=== PATIENT | female | born 1995 | race African-American/Black ===

== ENCOUNTER 2016-09-26 11:45 | Outpatient (CLI) | payer BC, MEDICAID ==
[2016-09-26 12:19] LABS: APPEARANCE,URINE SLIGHTLY-CLOUDY; BILIRUBIN,URINE NEGATIVE (NEGATIVE); GLUCOSE, URINE NEGATIVE (NEGATIVE); KETONES,URINE NEGATIVE (NEGATIVE); LEUKOCYTE ESTERASE,URINE TRACE (NEGATIVE); NITRITE,URINE NEGATIVE (NEGATIVE); PROTEIN,URINE NEGATIVE (NEGATIVE); URINE SPECIFIC GRAVITY 1.014; UROBILINOGEN,URINE NEGATIVE mg/dL (<2.0)
[2016-09-26 12:23] LABS: URINE BARBITURATES SCREEN NEGATIVE; URINE METHADONE SCREEN NEGATIVE; URINE OPIATES LOW NEGATIVE; URINE PHENCYCLIDINE SCREEN NEGATIVE
[2016-09-26] MEDS ORDERED: RINGERS SOLUTION,LACTATED 1,000 ML IV ONE (12:24)
[2016-09-26] MEDS ORDERED: RINGERS SOLUTION,LACTATED 1,000 ML IV PRN (12:24)
[2016-09-26] MEDS ORDERED: BETAMET ACET/BETAMET NA INJ 6 MG/1 ML ONE (12:39)
[2016-09-26 12:55] LABS: ABSOLUTE EOSINOPHILS # (AUTO) 0.1 10^3/uL (0.0-0.6); ABSOLUTE LYMPHOCYTES (AUTO) 1.3 10^3/uL (0.5-4.7); ABSOLUTE MONOCYTES (AUTO) 0.7 10^3/uL (0.1-1.4); ABSOLUTE NEUT (AUTO) 4.6 10^3/uL (1.7-8.2); BASOPHILS % (AUTO) 0.6 % (0-2); EOSINOPHILS % (AUTO) 1.1 % (0-6); HEMATOCRIT 36.6 % (36.0-47.0); HEMOGLOBIN 11.4 g/dL (12.0-15.5); HGB HCT DIFFERENCE -2.4; LYMPHOCYTES % (AUTO) 19.1 % (13-45); MEAN CORPUSCULAR HEMOGLOBIN 22.5 pg (27.0-33.4); MEAN CORPUSCULAR VOLUME 73 fl (80-97); MONOCYTES % (AUTO) 10.1 % (3-13); RED BLOOD COUNT 5.05 10^6/uL (3.72-5.28); RED CELL DISTRIBUTION WIDTH 16.5 % (11.5-14.0); SEGMENTED NEUTROPHILS % (AUTO) 69.1 % (42-78); WHITE BLOOD COUNT 6.6 10^3/uL (4.0-10.5)
[2016-09-26] MEDS ORDERED: BETAMET ACET/BETAMET NA INJ 6 MG/1 ML IM SCH (13:00)
[2016-09-26 13:26] LABS: AMNISURE (ROM) NEGATIVE (NEGATIVE)
[2016-09-26 14:54] LABS: CHLAM PCR NOT DETECTED (NOT DETECT)
[2016-09-26] MEDS ORDERED: CONTAINER EMPTY IV PRN (15:11)
[2016-09-26] MEDS ORDERED: [UNRECOGNIZED DRUG - OTHER] IV PRN (15:11)
[2016-09-26] MEDS ORDERED: METRONIDAZOLE IV PRN (15:11)
[2016-09-26] MEDS ORDERED: ONDANSETRON 4 MG TAB.RAPDIS ONE (16:01)
[2016-09-26] MEDS ORDERED: METRONIDAZOLE 500 MG/NS RTU 100 ML IV ONE ×2 (16:03→16:04)
[2016-09-26] MEDS ORDERED: METRONIDAZOLE 500 MG/NS RTU 100 ML IV PRN (16:11)
[2016-09-26] MEDS ORDERED: ONDANSETRON 4 MG TAB.RAPDIS PO ONE (16:30)
--- NOTE | 2016-09-26 17:06 | Non Stress Test Report ---
Non Stress Test Datetime Report Generated by CPN: 09/26/2016 17:05 DEMOGRAPHIC EGA NST: 32.6 INDICATION Indication for Study: labor MONITORING Monitor Explained: Monitor Explained; Test Explained; Patient Verbalized Understanding Time on Monitor: 09/26/2016 14:00 Time off Monitor: 09/26/2016 14:20 NST Duration: 20 NST INTERVENTIONS NST Interventions: None Physician Notified NST: A Emmel CNM BABY A: [id number] BABY A Movement : Present Contraction Frequency : irregular FHR Baseline : 135 Accelerations : 15X15 Decelerations : None Variability : Moderate 6-25bpm NST Review: Meets Criteria for Reactive NST NST Review and Verified By : Jenni Camp RNC NST Results: Reactive NST REPORT Report Trigger: Send Report
== END 2016-09-26 17:29 | disposition home or self-care (01) ==
LOC: LC 11:45
PROVIDERS: ATTEND Obstetrics & Gynecology
DX: O60.03 Preterm labor without delivery, third trimester (principal); Z3A.32 32 weeks gestation of pregnancy
CPT/HCPCS: 59025; 96372; 84112; 86900; 86901; 36415; 87210; 86850; 85025; 86592; 81001; 87081; 80307; 87491; 87591; S0119; J0702

== ENCOUNTER 2016-09-27 13:04 | Outpatient (CLI) | payer BC, MEDICAID ==
[2016-09-27] MEDS ORDERED: BETAMET ACET/BETAMET NA INJ 6 MG/1 ML ONE (13:16)
[2016-09-27] MEDS ORDERED: BETAMET ACET/BETAMET NA INJ 6 MG/1 ML IM ONE (14:30)
== END 2016-09-27 13:20 | disposition home or self-care (01) ==
LOC: LC 13:04
PROVIDERS: ATTEND Obstetrics & Gynecology
DX: O60.03 Preterm labor without delivery, third trimester (principal); Z3A.32 32 weeks gestation of pregnancy
CPT/HCPCS: 96372; J0702

== ENCOUNTER 2016-09-27 22:18 | Outpatient (CLI) | payer BC, MEDICAID ==
[2016-09-27 22:52] LABS: APPEARANCE,URINE CLEAR; BILIRUBIN,URINE NEGATIVE (NEGATIVE); GLUCOSE, URINE 50 mg/dL (NEGATIVE); KETONES,URINE NEGATIVE (NEGATIVE); LEUKOCYTE ESTERASE,URINE TRACE (NEGATIVE); NITRITE,URINE NEGATIVE (NEGATIVE); PROTEIN,URINE NEGATIVE (NEGATIVE); URINE SPECIFIC GRAVITY 1.002; UROBILINOGEN,URINE NEGATIVE mg/dL (<2.0)
[2016-09-27 23:06] LABS: URINE BARBITURATES SCREEN NEGATIVE; URINE METHADONE SCREEN NEGATIVE; URINE OPIATES LOW NEGATIVE; URINE PHENCYCLIDINE SCREEN NEGATIVE
--- NOTE | 2016-09-27 23:49 | Non Stress Test Report ---
Non Stress Test Datetime Report Generated by CPN: 09/27/2016 23:48 DEMOGRAPHIC Test Number: 3 EGA NST: 33.0 INDICATION Indication for Study: Decreased Movement; Ordered by Provider VITAL SIGNS Temperature - NST: 98.1 Pulse - NST: 76 RESP - NST: 14 NBPSYS NST: 108 NBPDIA NST: 69 URINE RESULTS Urine Protein, NST: Negative Urine Ketones - NST: Negative Urine Glucose - NST: Positive Urine Blood - NST: Negative MONITORING Monitor Explained: Monitor Explained; Test Explained; Patient Verbalized Understanding Time on Monitor: 09/27/2016 22:35 Time off Monitor: 09/27/2016 23:27 NST Duration: 52 NST INTERVENTIONS NST Interventions: PO Hydration Physician Notified NST: Dr. Mclain BABY A: [id number] BABY A Movement : Absent Contraction Frequency : x1 FHR Baseline : 130 Accelerations : 15X15 Decelerations : None Variability : Moderate 6-25bpm NST Review: Meets Criteria for Reactive NST NST Review and Verified By : K. Nolan, RN NST Results: Reactive NST REPORT Report Trigger: Send Report
== END 2016-09-27 23:43 | disposition home or self-care (01) ==
LOC: LC 22:18
PROVIDERS: ATTEND Obstetrics & Gynecology
DX: O36.8130 Decreased fetal movements, third trimester, not applicable or unspecified (principal); Z3A.33 33 weeks gestation of pregnancy
CPT/HCPCS: 59025; 96372; 81001; 80307; J0702

== ENCOUNTER 2016-11-18 03:02 | Inpatient (IN) | payer BC, MEDICAID ==
[2016-11-18 04:06] LABS: APPEARANCE,URINE SLIGHTLY-CLOUDY; BILIRUBIN,URINE NEGATIVE (NEGATIVE); GLUCOSE, URINE NEGATIVE (NEGATIVE); KETONES,URINE NEGATIVE (NEGATIVE); LEUKOCYTE ESTERASE,URINE TRACE (NEGATIVE); NITRITE,URINE NEGATIVE (NEGATIVE); PROTEIN,URINE 30 mg/dL (NEGATIVE); URINE SPECIFIC GRAVITY 1.011; UROBILINOGEN,URINE NEGATIVE mg/dL (<2.0)
[2016-11-18 04:20] LABS: URINE BARBITURATES SCREEN NEGATIVE; URINE METHADONE SCREEN NEGATIVE; URINE OPIATES LOW NEGATIVE; URINE PHENCYCLIDINE SCREEN NEGATIVE
[2016-11-18 04:36] LABS: ABSOLUTE BASOPHILS # (AUTO) 0.1 10^3/uL (0.0-0.2); ABSOLUTE EOSINOPHILS # (AUTO) 0.1 10^3/uL (0.0-0.6); ABSOLUTE LYMPHOCYTES (AUTO) 1.4 10^3/uL (0.5-4.7); ABSOLUTE MONOCYTES (AUTO) 0.5 10^3/uL (0.1-1.4); ABSOLUTE NEUT (AUTO) 3.9 10^3/uL (1.7-8.2); BASOPHILS % (AUTO) 0.9 % (0-2); EOSINOPHILS % (AUTO) 1.1 % (0-6); HEMATOCRIT 33.7 % (36.0-47.0); HEMOGLOBIN 10.9 g/dL (12.0-15.5); LYMPHOCYTES % (AUTO) 23.9 % (13-45); MEAN CORPUSCULAR HEMOGLOBIN 22.4 pg (27.0-33.4); MEAN CORPUSCULAR HGB CONC 32.4 g/dL (32.0-36.0); MEAN CORPUSCULAR VOLUME 69 fl (80-97); MONOCYTES % (AUTO) 7.7 % (3-13); RED BLOOD COUNT 4.87 10^6/uL (3.72-5.28); RED CELL DISTRIBUTION WIDTH 19.1 % (11.5-14.0); SEGMENTED NEUTROPHILS % (AUTO) 66.4 % (42-78); WHITE BLOOD COUNT 5.9 10^3/uL (4.0-10.5)
[2016-11-18 04:43] LABS: ALANINE AMINOTRANSFERASE 20 U/L (9-52); ALKALINE PHOSPHATASE 122 U/L (38-126); ANION GAP 10 (5-19); ASPARTATE AMINO TRANSFERASE 18 U/L (14-36); BILIRUBIN,DIRECT 0.3 mg/dL (0.0-0.4); BILIRUBIN,TOTAL 0.3 mg/dL (0.2-1.3); BLOOD UREA NITROGEN 7 mg/dL (7-20); CALCIUM 9.8 mg/dL (8.4-10.2); CARBON DIOXIDE 21 mmol/L (22-30); CHLORIDE 107 mmol/L (98-107); CREATININE RESULT 0.71 mg/dL (0.52-1.25); GLUCOSE 103 mg/dL (75-110); LDH 410 U/L (313-618); POTASSIUM 4.1 mmol/L (3.6-5.0); SODIUM 138.3 mmol/L (137-145); TOTAL PROTEIN 5.9 g/dL (6.3-8.2); URIC ACID 5.7 mg/dL (2.5-6.2)
[2016-11-18] MEDS ORDERED: RINGERS SOLUTION,LACTATED 1,000 ML IV PRN (06:25)
[2016-11-18] MEDS ORDERED: NALBUPHINE HCL INJ 10 MG/1 ML AMPULE INJ ONE ×2 (06:26→20:20)
[2016-11-18] MEDS ORDERED: PROMETHAZINE HCL INJ 25 MG/1 ML VIAL IV ONE (06:26)
[2016-11-18] MEDS ORDERED: MISOPROSTOL 0.2 MG TABLET ONE ×2 (09:29→19:39)
[2016-11-18] MEDS ORDERED: LIDOCAINE 1% INJ-PF (10 MG/ML) 30 ML SDV ONE (09:30)
[2016-11-18] MEDS ORDERED: OXYTOCIN/NORMAL SALINE 20 UNIT/1,000 ML RTUINJ ONE ×2 (09:30→21:12)
[2016-11-18] MEDS ORDERED: PROMETHAZINE HCL INJ 25 MG/1 ML VIAL ONE (10:53)
[2016-11-18] MEDS ORDERED: NALBUPHINE HCL INJ 10 MG/1 ML AMPULE ONE ×2 (10:53→20:25)
[2016-11-18] MEDS ORDERED: PROMETHAZINE HCL 25 MG TABLET PO PRN (15:37)
[2016-11-18] MEDS ORDERED: ZOLPIDEM TARTRATE 5 MG TABLET PO PRN (15:37)
[2016-11-18] MEDS ORDERED: DIPH/PERTUSS(ACELL)/TETANUS VAC/PF 0.5 ML SYR (>=10YO) IM PRN (15:37)
[2016-11-18] MEDS ORDERED: PROMETHAZINE HCL INJ 25 MG/1 ML VIAL IV PRN (15:37)
[2016-11-18] MEDS ORDERED: DIBUCAINE 1% OINTMENT 28 GM TP PRN (15:37)
[2016-11-18] MEDS ORDERED: PROMETHAZINE HCL 25 MG SUPP.RECT PR PRN (15:37)
[2016-11-18] MEDS ORDERED: MEASLES,MUMPS&RUBELLA VACC/PF 0.5 ML VIAL SUBCUT PRN (15:37)
[2016-11-18] MEDS ORDERED: GLYCERIN/WITCH HAZEL LEAF 1 EACH MED..PAD TP PRN (15:37)
[2016-11-18] MEDS ORDERED: PSEUDOEPHEDRINE HCL 30 MG TABLET PO PRN (15:37)
[2016-11-18] MEDS ORDERED: NA PHOS,M-B/NA PHOS,DI-BA (ADULT) 133 ML ENEMA PR PRN (15:37)
[2016-11-18] MEDS ORDERED: DIPHENHYDRAMINE HCL 25 MG CAPSULE PO PRN (15:37)
[2016-11-18] MEDS ORDERED: OXYTOCIN/NORMAL SALINE 20 UNIT/1,000 ML RTUINJ IV PRN ×2 (15:37→21:16)
[2016-11-18] MEDS ORDERED: MAGNESIUM HYDROXIDE SUSP 30 ML UDCUP PO PRN (15:37)
[2016-11-18] MEDS: IBUPROFEN 800 MG TABLET PO SCH (16:13)
[2016-11-18] MEDS ORDERED: IBUPROFEN 800 MG TABLET ONE (16:15)
--- NOTE | 2016-11-18 18:21 | Admission Physical ---
Datetime Report Generated by CPN: 11/18/2016 18:21 CURRENT ADMISSION Chief Complaint: Uterine Contractions Indication for Induction: Not Applicable Admit Plan: Admit to Unit; Initiate Labor Protocol ALLERGIES Medication Allergies: Yes Medication Allergies: oxycodone/GA (11/18/2016); acetaminophen/GA (11/18/2016) Medication Allergies: oxycodone/GA (09/27/2016); acetaminophen/GA (09/27/2016) Medication Allergies: oxycodone (09/26/2016); acetaminophen (09/26/2016) Medication Allergies: Percocet Latex: No Latex Allergies Food Allergies: N/A Environmental Allergies: N/A OBSTETRICAL HISTORY EDC: 11/15/2016 00:00 : 1 Para: 0 Term: 0 : 0 SAB: 0 IAB: 0 Ectopic: 0 Livin Cesareans: 0 VBACs: 0 Multiple Births: 0 Gestational Diabetes: No Rh Sensitization: No Incompetent Cervix: No ABHI: No Infertility: No ART Treatment: No Uterine Anomaly: No IUGR: No Hx Previous C/S: No Macrosomia: No Hx Loss/Stillborn: No PIH: No Hx : No Placenta Previa/Abruption: No Depression/PP Depression: No PTL/PROM: No Post Hemorrhage: No Current Procedures: Ultrasound Obstetrical History Comments: G1-current , shortened cervix at 32+6 weeks gestation SEE RECORDS Alcohol: No Marijuana : No Cocaine: No Other Illicit Drugs: No Cigarettes: Never Smoker. 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 Surgery: No Heart Disease: No Hosp/Surgery: No Autoimmune Disorder: No Anesthetic Complications: No Kidney Disease: No Abnormal Pap Smear: No Neuro/Epilepsy: No Psychiatric Disorders: No Other Medical Diseases: No Hepatitis/Liver Disease: No Significant Family History: No Varicosities/Phlebitis: No Trauma/Violence : No Thyroid Dysfunction: No INFECTIOUS HISTORY Gonorrhea: No Genital Herpes: No Chlamydia: No Tuberculosis: No Syphilis: No Hepatitis: No HIV/AIDS Exposure: No Rash or Viral Illness: No HPV: No PHYSICAL EXAM General: Normal HEENT: Normal Neurologic: Normal Thyroid: Deferred Heart: Normal Lungs: Normal Breast: Deferred Back: Normal Abdomen: Normal Genitourinary Exam: Normal Extremities: Normal DTRs: Normal Pelvic Type: Adequate Vital Signs: Reviewed; Within Normal Limits VAGINAL EXAM Dilatation: 5 Effacement: 80 Station: -1 MEMBRANES Membranes: Intact FETUS A EGA: 40.3 Monitoring: External US FHR- Baseline: 140 Variability: Moderate 6-25bpm Accelerations: 15X15 Decelerations: None FHR Category: Category I Presentation: Vertex PLANS FOR LABOR AND DELIVERY Labor and Delivery: None Pain Management: Medications Feeding Preference: Breast Benefit of Breast Feed Discussed: Yes Circumcision: N/A INFORMED CONSENT Signature: with User ID: [email or web address]
[2016-11-18] MEDS: FERROUS SULFATE 325 MG TABLET PO SCH (18:25)
[2016-11-18] MEDS: DOCUSATE SODIUM 100 MG CAPSULE PO SCH (18:25)
[2016-11-18] MEDS: BENZOCAINE/MENTHOL AEROSOL SPRAY 56 ML TOP PRN (18:26)
[2016-11-18] MEDS ORDERED: MISOPROSTOL 0.1 MG TABLET PR ONE (20:00)
[2016-11-18] MEDS ORDERED: CEFAZOLIN 2 GM/D5W RTU 2 GM/50 ML RTUPB IV PRN (20:39)
[2016-11-18] MEDS ORDERED: METHYLERGONOVINE MALEATE 0.2 MG TABLET PO SCH (20:45)
--- NOTE | 2016-11-18 20:53 | PDOC PROGRESS REPORT ---
Subjective Progress Note for:: 11/18/16 Subjective:: bleeding after delivery. Called by RN to eval Physical Exam - Physical Exam Vital Signs: Temp Pulse Resp BP Pulse Ox 98.5 F 113 H 20 120/75 100 11/18/16 19:40 11/18/16 19:50 11/18/16 19:40 11/18/16 19:50 11/18/16 19:40 Intake & Output 11/17/16 11/18/16 11/19/16 06:59 06:59 06:59 Weight 76.55 kg General appearance: PRESENT: no acute distress, well-developed, well-nourished Gentrourinary exam: PRESENT: other - Minimal blood on chux upon entry into room to eval. clot in lower uterine segment and cervix - removed with good response of uterine tone with fundal rub. Sanders to gravity placed. Neurological exam: PRESENT: alert, awake, oriented to person, oriented to place , oriented to time, oriented to situation, CN II-XII grossly intact. ABSENT: motor sensory deficit Result Laboratory Results: 11/18/16 04:15 11/18/16 04:15 11/18/16 11/18/16 11/18/16 03:11 04:15 04:15 WBC 5.9 RBC 4.87 Hgb 10.9 L Hct 33.7 L MCV 69 L MCH 22.4 L MCHC 32.4 RDW 19.1 H Plt Count 202 Seg Neutrophils % 66.4 Lymphocytes % 23.9 Monocytes % 7.7 Eosinophils % 1.1 Basophils % 0.9 Absolute Neutrophils 3.9 Absolute Lymphocytes 1.4 Absolute Monocytes 0.5 Absolute Eosinophils 0.1 Absolute Basophils 0.1 Sodium 138.3 Potassium 4.1 Chloride 107 Carbon Dioxide 21 L Anion Gap 10 BUN 7 Creatinine 0.71 Est GFR ( Amer) > 60 Est GFR (Non-Af Amer) > 60 Glucose 103 Uric Acid 5.7 Calcium 9.8 Total Bilirubin 0.3 AST 18 ALT 20 Alkaline Phosphatase 122 Total Protein 5.9 L Albumin 3.0 L Urine Color YELLOW Urine Appearance SLIGHTLY-CLOUDY Urine pH 6.0 Ur Specific [place] 1.011 Urine Protein 30 H Urine Glucose (UA) NEGATIVE Urine Ketones NEGATIVE Urine Blood NEGATIVE Urine Nitrite NEGATIVE Ur Leukocyte Esterase TRACE H Blood Type Antibody Screen 11/18/16 04:15 WBC RBC Hgb Hct MCV MCH MCHC RDW Plt Count Seg Neutrophils % Lymphocytes % Monocytes % Eosinophils % Basophils % Absolute Neutrophils Absolute Lymphocytes Absolute Monocytes Absolute Eosinophils Absolute Basophils Sodium Potassium Chloride Carbon Dioxide Anion Gap BUN Creatinine Est GFR ( Amer) Est GFR (Non-Af Amer) Glucose Uric Acid Calcium Total Bilirubin AST ALT Alkaline Phosphatase Total Protein Albumin Urine Color Urine Appearance Urine pH Ur Specific [place] Urine Protein Urine Glucose (UA) Urine Ketones Urine Blood Urine Nitrite Ur Leukocyte Esterase Blood Type O POSITIVE Antibody Screen NEGATIVE Assessment & Plan - Diagnosis (1) hemorrhage Qualifiers: hemorrhage type: unspecified Qualified Code(s): O72.1 - Other immediate hemorrhage Is this a current diagnosis for this admission?: Yes Plan: Delivered at approx 1500 this afternoon - uncomplicated with no epidural for analgesia. Bladder scan reported on 90ml of urine in bladder but pthaving low volume output with voids. No epidural therefore no ureinary catheter in place during labor. Mild pp hemorrhage. Poss 500ml of clot removed. Uterine tone o/w good. Pitocin ordered 20units in 1L. Cytotec 1000mcg given per rectum. BP wnl and will give 24 hour of methergine. Sanders to gravity placed with 125ml of immediate return of urine output. - Time Time Spent with patient: 15-24 minutes Medications reviewed and adjusted accordingly: Yes Anticipated discharge: Home Within: within 48 hours - Inpatient Certification Based on my medical assessment, after consideration of the patient's comorbidities, presenting symptoms, or acuity I expect that the services needed warrant INPATIENT care.: Yes I certify that my determination is in accordance with my understanding of Medicare's requirements for reasonable and necessary INPATIENT services [42 CFR 412.3e].: Yes Medical Necessity: Need Close Monitoring Due to Risk of Patient Decompensation, Need For IV Fluids, Need for Pain Control, Need for IV Antibiotics Post Hospital Care: D/C Heating Element Repairer Documentation - Plan Summary Plan Summary: IV abx, IVF, repeat CBC in am. VS stable. Methergine and pitocin ordered. Sanders to gravity placed.
[2016-11-18] MEDS ORDERED: METHYLERGONOVINE MALEATE 0.2 MG TABLET ONE (21:12)
[2016-11-18] MEDS: FAMOTIDINE 20 MG TABLET PO SCH (21:34)
[2016-11-18] MEDS ORDERED: ACETAMINOPHEN WITH CODEINE #3 TABLET ONE (22:57)
[2016-11-18] MEDS ORDERED: ACETAMINOPHEN WITH CODEINE #3 TABLET PO PRN (22:57)
[2016-11-19] MEDS ORDERED: LOPERAMIDE HCL 2 MG CAPSULE PO PRN (00:44)
[2016-11-19] MEDS ORDERED: LOPERAMIDE HCL 2 MG CAPSULE PO ONE (00:45)
[2016-11-19] MEDS ORDERED: CARBOPROST TROMETHAMINE INJ 250 MCG/1 ML AMPULE IM ONE (01:00)
[2016-11-19] MEDS: METHYLERGONOVINE MALEATE 0.2 MG TABLET PO SCH ×3 (02:47→15:05)
[2016-11-19] MEDS ORDERED: CARBOPROST TROMETHAMINE INJ 250 MCG/1 ML AMPULE ONE (03:42)
[2016-11-19] MEDS: IBUPROFEN 800 MG TABLET PO SCH ×3 (05:41→21:33)
[2016-11-19 07:23] LABS: HEMATOCRIT 24.1 % (36.0-47.0); HGB HCT DIFFERENCE -0.7; MEAN CORPUSCULAR HEMOGLOBIN 22.5 pg (27.0-33.4); MEAN CORPUSCULAR HGB CONC 32.4 g/dL (32.0-36.0); MEAN CORPUSCULAR VOLUME 69 fl (80-97); RED BLOOD COUNT 3.47 10^6/uL (3.72-5.28); RED CELL DISTRIBUTION WIDTH 19.4 % (11.5-14.0); WHITE BLOOD COUNT 7.2 10^3/uL (4.0-10.5)
[2016-11-19] MEDS: ACETAMINOPHEN WITH CODEINE #3 TABLET PO PRN ×2 (07:24→13:41)
[2016-11-19 07:42] LABS: HEMOGLOBIN 7.8 g/dL (12.0-15.5)
[2016-11-19] MEDS: PRENATAL VITAMIN W-O CA NO5/FE FUMARATE/FA CAPSULE PO SCH (09:03)
[2016-11-19] MEDS: DOCUSATE SODIUM 100 MG CAPSULE PO SCH ×2 (09:03→17:28)
[2016-11-19] MEDS: FERROUS SULFATE 325 MG TABLET PO SCH ×2 (09:04→17:28)
[2016-11-19] MEDS: FAMOTIDINE 20 MG TABLET PO SCH ×2 (09:04→21:32)
[2016-11-19] MEDS: SENNOSIDES/DOCUSATE 8.6-50 MG 1 EACH TABLET PO SCH (09:04)
--- NOTE | 2016-11-19 11:00 | PDOC PROGRESS REPORT ---
Subjective-OB Subjective: Post Delivery Day:1 21 year old G1 now P1 s/p ppd1. Denies any needs at this time, koehler just removed. Has not had a chance to ambulate after last night. Denies shortness of breath, dizziness or lightheadedness this am. No other concerns. Physical Exam (OB) Vital Signs: Temp Pulse Resp BP Pulse Ox 98.1 F 102 H 16 124/67 99 11/19/16 03:59 11/19/16 03:59 11/19/16 03:59 11/19/16 03:59 11/19/16 03:59 Intake & Output 11/18/16 11/19/16 11/20/16 06:59 06:59 06:59 Output Total 550 Balance -550 Weight 76.55 kg - General General Appearance: Appears well In distress: None - PIH/Pre-Eclampsia DTR's: 1 + Clonus: Negative Headache: Absent Epigastric Pain: No Visual Changes: No - Episiotomy/Laceration Site Condition: Well Approximated - Lochia Lochia Amount: Small 10-25 ml Lochia Color: Rubra/Red - Abdomen Description: Soft, Round Hernia Present: No Fundal Description: Firm, Midline Fundal Height: u/u - u/2 - Respiratory Respiratory Status: No respiratory distress - Extremities Upper extremity: Normal inspection Lower extremities: Normal inspection - Neurological Cognition: Normal Orientation: AAOx4 - Psychological Associated symptoms: Normal affect - bonding well with baby. Breast and bottle feeding, Normal mood Objective-Diagnostic Laboratory: 11/19/16 07:01 11/18/16 04:15 11/19/16 07:01 WBC 7.2 RBC 3.47 L Hgb 7.8 L D Hct 24.1 L MCV 69 L MCH 22.5 L MCHC 32.4 RDW 19.4 H Plt Count 179 Assessment and Plan(PN) - Assessment and Plan (1) Vaginal delivery Is this a current diagnosis for this admission?: Yes Plan: routine pp care (2) hemorrhage Qualifiers: hemorrhage type: unspecified Qualified Code(s): O72.1 - Other immediate hemorrhage Is this a current diagnosis for this admission?: Yes Plan: will continue methergine and evaluate for possible blood transfusion prn - Time Spent with Patient Time with patient: 15-25 minutes Medications reviewed and adjusted accordingly: Yes - Disposition Anticipated Discharge: Home Within: within 24 hours
[2016-11-19] MEDS: BENZOCAINE/MENTHOL AEROSOL SPRAY 56 ML TOP PRN (21:33)
[2016-11-20] MEDS: IBUPROFEN 800 MG TABLET PO SCH (06:21)
[2016-11-20] MEDS: FERROUS SULFATE 325 MG TABLET PO SCH (09:13)
[2016-11-20] MEDS: DOCUSATE SODIUM 100 MG CAPSULE PO SCH (09:13)
[2016-11-20] MEDS: SENNOSIDES/DOCUSATE 8.6-50 MG 1 EACH TABLET PO SCH (09:14)
[2016-11-20] MEDS: FAMOTIDINE 20 MG TABLET PO SCH (09:14)
[2016-11-20] MEDS: PRENATAL VITAMIN W-O CA NO5/FE FUMARATE/FA CAPSULE PO SCH (09:14)
--- NOTE | 2016-11-20 10:23 | PDOC DISCHARGE SUMMARY ---
Final Diagnosis Discharge Date: 11/20/16 - Final Diagnosis (1) hemorrhage Is this a current diagnosis for this admission?: Yes (2) Vaginal delivery Is this a current diagnosis for this admission?: Yes Discharge Data - Discharge Medication Home Medications: Cetirizine HCl [Zyrtec 10 mg Tablet] 10 mg PO DAILY 12/24/11 Pnv No.122/Iron/Folic Acid [ Multi Tablet] 1 tab PO DAILY 09/26/16 Reason(s) for Admission: Onset of Labor Procedures: None Intrapartum Procedure(s): Spontaneous Vaginal Delivery Complication(s): Laceration-Labial - Diagnosis Test Laboratory: Temp Pulse Resp BP Pulse Ox 98.0 F 83 16 116/73 100 11/20/16 08:07 11/20/16 08:07 11/20/16 08:07 11/20/16 08:07 11/20/16 08:07 11/18/16 11/18/16 11/19/16 03:11 04:15 07:01 RBC 4.87 3.47 L Hgb 10.9 L 7.8 L D Hct 33.7 L 24.1 L Urine Opiates Screen NEGATIVE - Discharge information/Instructions Discharge Activity: Activity As Tolerated Discharge Diet: Regular Disposition: HOME, SELF-CARE Follow up with: [facility] in: 2 - follow up after blood transfusion/ anemia
--- NOTE | 2016-11-20 10:33 | PDOC PROGRESS REPORT ---
Subjective-OB Subjective: Post Delivery Day: 21 year old. Denies any needs at this time pt reports feeling so much better today no headaches, no ringing in her ears or dizziness. awaiting cbc now/will discharge with follow up in 2 weeks pt to continue iron bid anticipate d/c this am Physical Exam (OB) Vital Signs: Temp Pulse Resp BP Pulse Ox 98.0 F 83 16 116/73 100 11/20/16 08:07 11/20/16 08:07 11/20/16 08:07 11/20/16 08:07 11/20/16 08:07 Intake & Output 11/19/16 11/20/16 11/21/16 06:59 06:59 06:59 Intake Total 300 300 Output Total 550 Balance -550 300 300 - PIH/Pre-Eclampsia DTR's: 1 + Clonus: Negative Headache: Absent Epigastric Pain: No Visual Changes: No - Lochia Lochia Amount: Scant < 10 ml Lochia Color: Rubra/Red - Abdomen Description: Tender, Soft Hernia Present: No Fundal Description: Firm, Midline Fundal Height: u/u - u/2 Objective-Diagnostic Laboratory: 11/19/16 07:01 11/18/16 04:15 11/18/16 04:15 Blood Type O POSITIVE Antibody Screen NEGATIVE Assessment and Plan(PN) - Assessment and Plan (1) hemorrhage Qualifiers: hemorrhage type: unspecified Qualified Code(s): O72.1 - Other immediate hemorrhage Is this a current diagnosis for this admission?: Yes (2) Vaginal delivery Is this a current diagnosis for this admission?: Yes - Time Spent with Patient Medications reviewed and adjusted accordingly: Yes - Disposition Anticipated Discharge: Home
[2016-11-20 10:55] LABS: HEMATOCRIT 27.6 % (36.0-47.0); HEMOGLOBIN 8.6 g/dL (12.0-15.5); HGB HCT DIFFERENCE -1.8; MEAN CORPUSCULAR HEMOGLOBIN 22.3 pg (27.0-33.4); MEAN CORPUSCULAR HGB CONC 31.1 g/dL (32.0-36.0); MEAN CORPUSCULAR VOLUME 72 fl (80-97); RED BLOOD COUNT 3.86 10^6/uL (3.72-5.28); WHITE BLOOD COUNT 6.6 10^3/uL (4.0-10.5)
[2016-11-20 11:44] VITALS: BP 112/55
--- NOTE | 2016-11-26 08:42 | Delivery Summary ---
Del Sum A-C Datetime Report Generated by CPN: 11/26/2016 08:42 DELIVERY PERSONNEL DELIVERY PERSONNEL: [id number] Delivery Doctor:: Eden Templeton MD Labor and Delivery Nurse:: Etienne John RNtitle insurance examiner Nurse:: Linda Esposito RN Nursery Nurse:: Roshni Gore RN Nursery Nurse:: CHRISSIE Che/CLOTH PRINTER: Rubi Ellis, DISC RECORDIST MATERNAL INFORMATION Delivery Anesthesia: None Medications After Delivery: Pitocin Bolus-Please Comment; Pitocin Drip 20 Units/1000ml NSS Estimated Blood Loss (ml): 250 Maternal Complications: None Provider Comments: VFI delivered in DONNA presentation. No nuchal cord shoulders and body delivered without difficulty. Cord doubly clamped and cut and infant to maternal abd for NRP. Placenta delivered intact spontaneously. FF at U. Laceration repaired in usual fashion. Good hemostasis. Weight pending. Apgars 8/9. Mother and baby stable upon provider leaving the room. LABOR SUMMARY EDC: 11/15/2016 00:00 No. Babies in Womb: 1 Attempted: No Labor Anesthesia: None LABOR INFORMATION Reason for Induction: Not Applicable Onset of Labor: 11/18/2016 05:00 Complete Dilatation: 11/18/2016 14:51 Oxytocin: Augmentation Group B Beta Strep: Negative Group B Beta Strep: unknown Antibiotics # of Doses: NA Antibiotics Time of Last Dose: NA Name of Antibiotic Given: NA Steroids Given: Full Course Reason Steroids Not Administered: Not Applicable Other Reason Not Administered: Steriods given for PTL earlier in pregancy. MEMBRANES Membranes Rupture Method: Artificial Rupture of Membranes: 11/18/2016 09:02 Length of Rupture (hr): 6.25 Amniotic Fluid Color: Moderate Meconium Amniotic Fluid Amount: Small STAGES OF LABOR Stage 1 hr: 9 Stage 1 min: 51 Stage 2 hr: 0 Stage 2 min: 26 Stage 3 hr: 0 Stage 3 min: 3 Total Time in Labor hr: 10 Total Time in Labor min: 20 VAGINAL DELIVERY Episiotomy: None Laceration Extension: N/A Laceration Extension: N/A Laceration Type: Vaginal Laceration Type: None Other Laceration: Labial tear Laceration Repair: Yes Laceration Repair: Yes Laceration Repair Note: Right labial laceration repaired in usual fashion with good hemostasis. Local anesthetic for repair Sponge Count Correct: Yes Sharps Count Correct: Yes CSECTION DELIVERY Primary Indication: N/A Secondary Indication: N/A CSection Incidence: N/A Labor: N/A Elective: N/A CSection Incision: N/A BABY A INFORMATION Infant Delivery Date/Time: 11/18/2016 15:17 Method of Delivery: Vaginal Born in Route : No : N/A Forceps: N/A Vacuum Extraction: N/A Shoulder Dystocia : No PRESENTATION/POSITION BABY A Presentation: Cephalic Cephalic Presentation: Vertex Vertex Position: OA Breech Presentation: N/A PLACENTA INFORMATION BABY A Placenta Delivery Time : 11/18/2016 15:20 Placenta Method of Delivery: Spontaneous Placenta Status: Delivered SCORES BABY A Heart Rate 1 min: >100 bpm Resp Effort 1 min: Good Cry Reflex Irritability 1 min: Cough or Sneeze or Pulls Away Muscle Tone 1 min: Active Motion Color 1 min: Blue/Pale Resuscitation Effort 1 min: Tactile Stimulation SCORE 1 MIN: 8 Heart Rate 5 min: >100 bpm Resp Effort 5 min: Good Cry Reflex Irritability 5 min: Cough or Sneeze or Pulls Away Muscle Tone 5 min: Active Motion Color 5 min: Body [place], Extremities Blue Resuscitation Effort 5 min: N/A SCORE 5 MIN: 9 INFORMATION BABY A Gestational Age at Delivery: 40.3 Gestational Status: Full Term- 39- 40.6 Weeks Infant Outcome : Liveborn Condition : Stable Infant Sex: Female IDENTIFICATION BABY A Verification Date/Time: 11/18/2016 15:47 ID Band Number: [id number] Mother's Name Verified: Yes Infant RN Verifying Infant: V Monk RN Additional Verifying Personnel: B Wright RN WEIGHT/LENGTH BABY A Birthweight (gm): 2950 Weight (lb): 6 Weight (oz): 8 Infant Length (in): 19.00 Length (cm): 48.26 CORD INFORMATION BABY A No. Cord Vessels: 3 Nuchal Cord : N/A Cord Blood Taken: Yes-For Eval (Mom's Blood Type - or O+) Suction: Mouth; Nose ASSESSMENT BABY A Skin to Skin: Yes Skin to Skin: Yes Skin to Skin Time (min): 1.5 hr SIGNATURES Signature: with User ID: Ana
== END 2016-11-20 13:25 | disposition home or self-care (01) | DRG 774 ==
LOC: LC 03:02 → LR 06:18 → 2S 17:55
PROVIDERS: ADMIT Obstetrics & Gynecology; ATTEND Student in an Organized Health Care Education/Training Program
PROC: 10E0XZZ Delivery of Products of Conception, External Approach (ICD-10-PCS; principal; 2016-11-18)
PROC: 0HQ9XZZ Repair Perineum Skin, External Approach (ICD-10-PCS; 2016-11-18)
PROC: 4A1HXCZ Monitoring of Products of Conception, Cardiac Rate, External Approach (ICD-10-PCS; 2016-11-18)
DX: O26.873 Cervical shortening, third trimester (principal); O72.1 Other immediate postpartum hemorrhage; O70.0 First degree perineal laceration during delivery; Z3A.40 40 weeks gestation of pregnancy; Z37.0 Single live birth
CPT/HCPCS: 36415; 36430; 80053; 80307; 81005; 83615; 84550; 85025; 85027; 86592; 86850; 86900; 86901; 86920; J0690; J2300; J2550; J2590; J3490; P9016